=== PATIENT | male | born 1985 | race Caucasian/White ===

== ENCOUNTER → 2019-03-08 | Emergency (ER) | payer OTHER ==
[~2019-03-08] VITALS: Ht 182.9 cm; Wt 129.7 kg
[~2019-03-08] MED LIST: PENICILLIN VK500 MG PO
[2019-03-08 19:29] VITALS: BP 144/105
== END ==
LOC: M.ERS 18:51
DX: J02.9 Acute pharyngitis, unspecified (principal)

== ENCOUNTER 2019-06-08 09:08 | Emergency (ER) | payer OTHER ==
[~2019-06-08] VITALS: Ht 182.9 cm; Wt 127.0 kg
[2019-06-08] MEDS ORDERED: FLEXERIL PO (10:47)
[2019-06-08] MEDS ORDERED: NORCO 5-325 TA1 EAC1 PO (10:47)
[2019-06-08 11:20] VITALS: BP 174/114
== END 2019-06-08 11:23 | disposition home or self-care (01) ==
LOC: M.ERS 09:08
DX: S22.31XA Fracture of one rib, right side, initial encounter for closed fracture (principal); S32.010A Wedge compression fracture of first lumbar vertebra, initial encounter for closed fracture; S20.221A Contusion of right back wall of thorax, initial encounter; F17.210 Nicotine dependence, cigarettes, uncomplicated; V86.39XA Unspecified occupant of other special all-terrain or other off-road motor vehicle injured in traffic accident, initial encounter; Y93.89 Activity, other specified; Y92.89 Other specified places as the place of occurrence of the external cause; Y99.8 Other external cause status

== ENCOUNTER 2019-06-20 23:33 | Emergency (ER) | payer OTHER ==
[~2019-06-20] VITALS: Ht 182.9 cm; Wt 130.2 kg
[~2019-06-20 23:33] MED LIST changes: +FLEXERIL PO; +NORCO 5-325 TA1 EAC1 PO
[2019-06-20] MEDS ORDERED: FLEXERIL PO (23:41)
[2019-06-21] MEDS ORDERED: HYDROCODON-ACE1 EAC8 PO (01:06)
[2019-06-21] MEDS ORDERED: FLEXERIL PO (01:06)
[2019-06-21 01:17] VITALS: BP 169/112
== END 2019-06-21 01:19 | disposition home or self-care (01) ==
LOC: M.ERS 23:33
DX: S32.010A Wedge compression fracture of first lumbar vertebra, initial encounter for closed fracture (principal); S22.080A Wedge compression fracture of T11-T12 vertebra, initial encounter for closed fracture; V89.2XXA Person injured in unspecified motor-vehicle accident, traffic, initial encounter; Y92.89 Other specified places as the place of occurrence of the external cause; Y93.89 Activity, other specified; Y99.8 Other external cause status

== ENCOUNTER 2019-08-25 12:57 | Emergency (ER) | payer OTHER ==
[~2019-08-25] VITALS: Ht 182.9 cm; Wt 130.2 kg
[~2019-08-25 12:57] MED LIST changes: +HYDROCODON-ACE1 EAC8 PO
[2019-08-25] MEDS ORDERED: CIPROFLOXIN HC2.5 M1 OPHTHALMIC (13:44)
[2019-08-25 14:03] VITALS: BP 186/100
== END 2019-08-25 14:03 | disposition home or self-care (01) ==
LOC: M.ERS 12:57
DX: H10.89 Other conjunctivitis (principal); A48.8 Other specified bacterial diseases

== ENCOUNTER 2019-11-23 10:22 | Emergency (ER) | payer OTHER ==
[~2019-11-23] VITALS: Ht 182.9 cm; Wt 130.2 kg
[~2019-11-23 10:22] MED LIST changes: +CIPROFLOXIN HC2.5 M1 OPHTHALMIC
== END 2019-11-23 10:46 | disposition home or self-care (01) ==
LOC: M.ERS 10:22
DX: J02.0 Streptococcal pharyngitis (principal)